=== PATIENT | female | born 1985 | race Caucasian/White ===

== ENCOUNTER 2024-07-22 06:13 | Day surgery (SDC) | payer OTHER ==
[2024-07-22] MEDS ORDERED: Lactated Ringers 1,000 ML IV SCH (06:15)
[2024-07-22] MEDS: Sodium Chloride 0.9% 10 ML Syringe FLUSH PRN (07:33)
[2024-07-22] MEDS: ceFAZolin 2 GM Vial IVPUSH ONE (07:34)
[2024-07-22] MEDS: Bupivacaine 0.5% 30 ML SDV INJECT ONE (07:47)
[2024-07-22] MEDS: Lidocaine 1% with EPINEPHrine 1:100,000 20 ML MDV INJECT ONE (07:47)
== END 2024-07-22 08:35 | disposition home or self-care (01) ==
LOC: FB.SDS 06:13
PROVIDERS: ATTEND Surgery
DX: R22.41 Localized swelling, mass and lump, right lower limb (principal); F41.1 Generalized anxiety disorder
CPT/HCPCS: 11404; 81025; 88304; J0665; J0690; J3490

== ENCOUNTER 2025-04-09 05:42 | Emergency (ER) | payer OTHER ==
[2025-04-09] MEDS: Morphine 10 MG/ML SDV IM ONE (06:07)
[2025-04-09] MEDS: hydrOXYzine HCl 50 MG/ML SDV IM ONE (06:08)
== END 2025-04-09 06:30 | disposition home or self-care (01) ==
LOC: FB.ED 05:42
DX: G43.909 Migraine, unspecified, not intractable, without status migrainosus (principal); E66.9 Obesity, unspecified; Z88.2 Allergy status to sulfonamides; Z88.8 Allergy status to other drugs, medicaments and biological substances; Z79.84 Long term (current) use of oral hypoglycemic drugs; Z79.899 Other long term (current) drug therapy
CPT/HCPCS: 96372; 99283; J2272; J3410